=== PATIENT | female | born 1965 | race Caucasian/White ===

== ENCOUNTER 2022-11-18 15:42 | Inpatient (IN) | payer OTHER ==
[~2022-11-18] VITALS: Ht 152.4 cm; Wt 75.9 kg
--- NOTE | 2022-11-18 16:30 | NUR ---
[id number] HOME C/O DIZZINESS X 4 DAYS W NOTED HYPERTENSION. PLACED ON BED, AAOX4, BREATHING EVEN NON LABORED SATURATING AT 98%, BP- 134/80, FL- 95.
--- NOTE | 2022-11-18 17:30 | NUR ---
CATIA DESIGNER AT BEDSIDE
[2022-11-18 17:49] LABS: BASOPHILS % (AUTO) 0.2 % (0.0-2.0); EOSINOPHILS % (AUTO) 2.6 % (0.0-6.0); HEMATOCRIT 38 % (33-45); HEMOGLOBIN 12.9 g/dL (11.5-14.8); LYMPHOCYTES % (AUTO) 11.7 % (20.0-44.0); MEAN CORPUSCULAR HGB CONC 34 g/dl (31.0-36.0); MEAN CORPUSCULAR VOLUME 93 fL (82-100); MONOCYTES # (AUTO) 0.4 K/uL (0.1-1.30); MONOCYTES % (AUTO) 4.5 % (2.0-12.0); NEUTROPHILS # (AUTO) 7.2 K/uL (1.8-8.9); PLATELET COUNT (AUTO) 130 K/uL (150-450); RED BLOOD CELL COUNT(AUTO) 4.11 MIL/uL (4.0-5.2); WHITE BLOOD COUNT (AUTO) 8.9 K/uL (4.3-11.0)
[2022-11-18 18:31] LABS: ALBUMIN 2.9 g/dL (3.4-5.0); BILIRUBIN,TOTAL 0.4 mg/dL (0.2-1.0); CALCIUM, SERUM 9.1 mg/dL (8.5-10.1); POTASSIUM 3.5 mmol/L (3.5-5.1); TOTAL PROTEIN, SERUM 8.3 g/dL (6.4-8.2)
[2022-11-18] MEDS ORDERED: IV NS 0.9% 1,000 ML IV ONE (19:00)
--- NOTE | 2022-11-18 19:00 | NUR ---
PATIENT TAKEN TO CT VIA [facility]
--- NOTE | 2022-11-18 19:19 | NUR ---
SWAB FOR COVID19 SENT TO LAB
--- NOTE | 2022-11-18 20:34 | NUR ---
IV CANNULA G20 ON RIGHT UPPER ARM.
--- NOTE | 2022-11-18 21:59 | NUR ---
URINE SAMPLE SENT TO LAB
--- NOTE | 2022-11-18 22:13 | NUR ---
REPORT GIVEN TO CANDIE RN ROOM 309-2 FOR ANTHONY
[2022-11-18 22:15] VITALS: BP 136/99
--- NOTE | 2022-11-18 22:15 | NUR ---
RN NOTES LUPE CALLED AT [id number] AND GAVE REPORT FOR THE PATIENT. HE STATED PATIENT WAS A/O TIMES 4 INITIALLY BUT NOW THAT WE WANT TO TRANSFER THE PATIENT SHE IS NOT RESPONSIVE. INFORMED CHARGE NURSE BELLO, SHE MADE SURE ALL TESTS IS DONE AND ALSO INFORMED NURSE PIANO CASE AND BENCH ASSEMBLER, FOR SAFE TRANSFER TO [facility].
[2022-11-18] MEDS ORDERED: Z GUARD REMEDY 4 OZ OINT TP PRN (23:00)
[2022-11-18] MEDS ORDERED: ACETAMINOPHEN 325 MG TABLET PO PRN (23:00)
[2022-11-18] MEDS ORDERED: MAGNESIUM HYDROXIDE 30 ML UDC PO PRN (23:00)
[2022-11-18] MEDS ORDERED: MAG HYDROX/AL HYDROX/SIMETH 30 ML UDC PO PRN (23:00)
[2022-11-18] MEDS ORDERED: ZOLPIDEM TARTRATE 5 MG TABLET PO PRN (23:00)
[2022-11-18] MEDS ORDERED: ONDANSETRON HCL/PF 4 MG/2 ML VIAL IVP PRN (23:00)
--- NOTE | 2022-11-18 23:00 | NUR ---
SIX PACK LOADER OPERATOR OPENING NOTES RECEIVED PATIENT AT 2300 FROM ER. ARASHNI AND ANOTHER NURSE TRANSFER THE PATIENT FROM ER. PATIENT NON RESPONSIVE. NURSE FACING GRINDER PRESENT. FINALLY WE GOT DEEP PAIN STIMULI RESPONSE. BUT PATIENT VERY WEAK AND NON RESPONSIVE TO VERBAL AND LIGHT TOUGH. ON TELE MONITOR READING SR 85. STARTED THE IV HYDRATION. OVERALL SKIN INTACT. ALL SAFETY MEASURES IN PLACE. BED LOCKED IN THE LOWEST POSITION. SIDE RAILS UP TIMES 2. BED ALARM ON. CALL LIGHT AND TABLE IN EASY REACH. WILL CONTINUE TO MONITOR CLOSELY.
[2022-11-18] MEDS: IV 1/2NS 1000 ML 1,000 ML IV PRN (23:26)
[2022-11-19] MEDS ORDERED: DEXTROSE 50%-WATER 50 ML DISP.SYRIN IV PRN (02:00)
[2022-11-19 04:00] VITALS: BP 140/103
[2022-11-19] MEDS: BLOOD SUGAR DIAGNOSTIC 1 EACH STRIP IN SCH ×4 (05:58→22:48)
[2022-11-19] MEDS: INSULIN REGULAR, HUMAN 100 UNIT/ML 3 ML VIAL SQ PRN ×4 (05:58→22:51)
--- NOTE | 2022-11-19 06:51 | NUR ---
PRODUCTION TECHNICIAN CLOSING NOTES RECEIVED PATIENT AWAKE IN BED. A/O TIMES 4. VERBALLY RESPONSIVE. NO PAIN NOTED. NO SOB NOTED. NO DISTRESS NOTED.ON TELE MONITOR READING SR 80. IV ACCESS ON THE RUARM G # 20 INTACT RUNNING 1/2 NS AT 75 ML/HR. OVERALL SKIN INTACT. ALL SAFETY MEASURES IN PLACE. BED LOCKED IN THE LOWEST POSITION. SIDE RAILS UP TIMES 2. BED ALARM ON. CALL LIGHT AND TABLE IN EASY REACH. WILL ENDORSE FOR ANTHONY..
--- NOTE | 2022-11-19 07:25 | NUR ---
SKATING RINK ICE MAKER OPENING NOTES RECEIVED PATIENT AWAKE IN BED. A/O X 4. VERBALLY RESPONSIVE. PT IS ON RA, BREATHING EVEN AND NON LABORED. NO PAIN NOTED. NO S/S OF DISTRESS OR SOB NOTED AT THIS TIME. PT IS ON EXTERNAL NUCLEAR MONITORING TECHNICIAN READING SR 83. IV ACCESS ON THE RIGHT UPPER ARM G #20 INTACT RUNNING 1/2 NS AT 75 ML/HR. ALL SAFETY MEASURES IN PLACE. BED LOCKED IN THE LOWEST POSITION. SIDE RAILS UP TIMES 2. BED ALARM ON. CALL LIGHT AND TABLE IN EASY REACH. WILL CONTINUE TO MONITOR.
[2022-11-19 08:00] VITALS: BP 175/96
[2022-11-19] MEDS: PANTOPRAZOLE 40 MG TABLET.DR PO SCH (09:14)
[2022-11-19] MEDS ORDERED: LOSA1TAB39 PO (09:15)
[2022-11-19] MEDS ORDERED: HUM10VIA3 SQ (09:15)
[2022-11-19] MEDS ORDERED: MECL-159 PO (09:15)
[2022-11-19] MEDS ORDERED: GABA300C PO (09:15)
[2022-11-19 10:03] LABS: BILIRUBIN,URINE NEGATIVE (NEGATIVE); COLOR,URINE DARK YELLOW (YELLOW); LEUKOCYTE ESTERASE ,URINE 2+ (NEGATIVE); NITRITE, URINE NEGATIVE (NEGATIVE); PROTEIN,URINE 3+ mg/dl (NEGATIVE); UGLUCOSE 1+ mg/dL (NEGATIVE); UROBILINOGEN,URINE 0.2 EU/dL (0.2)
[2022-11-19 10:07] LABS: BACTERIA,URINE Many /HPF (None Seen); COARSE GRANULAR CASTS,URINE Few /LPF (None Seen); RBC,URINE 21-50 /HPF (0-2); SQUAMOUS EPITHELIAL CELL,UR Moderate /HPF (None Seen); WBC,URINE 51-80 /HPF (0-3)
[2022-11-19 12:00] VITALS: BP 158/76
[2022-11-19] MEDS: IV 1/2NS 1000 ML 1,000 ML IV PRN (12:26)
[2022-11-19] MEDS: IV NS 0.9% 1,000 ML IV SCH (14:27)
[2022-11-19 16:00] VITALS: BP 97/57
--- NOTE | 2022-11-19 17:30 | NUR ---
RN NOTE PT HOME MEDICATION HAS NOT BEEN RECONCILED. CONTACTED X2. NO RESPONSE.
--- NOTE | 2022-11-19 18:35 | NUR ---
PASTORAL COUNSELOR CLOSING NOTES PATIENT AWAKE IN BED. A/OX4. PT IS ON RA WITH NO S/S SOB NOTED. NO DISTRESS NOTED. NO PAIN NOTED. ON EXTERNAL TELE MONITOR READING ST 107BPM. IV ACCESS ON THE RIGHT UA G#20 INTACT RUNNING NS AT 75 ML/HR. PT REFUSED BLOOD DRAW. ALL SAFETY MEASURES IN PLACE. BED LOCKED IN THE LOWEST POSITION. SIDE RAILS UP TIMES 2. BED ALARM ON. CALL LIGHT AND TABLE IN EASY REACH. WILL ENDORSE TO NEXT SHIFT FOR ANTHONY.
--- NOTE | 2022-11-19 19:20 | NUR ---
PROGRAMMER DEVELOPER OPENING NOTE RECEIVED PATIENT AWAKE IN BED. PT A/O X 4, ABLE TO MAKE NEEDS KNOWN. PT IS ON RA, BREATHING EVEN AND NON LABORED. NO PAIN NOTED. NO S/S OF DISTRESS OR SOB NOTED AT THIS TIME. PT IS ON EXTERNAL HOOP COILING MACHINE OPERATOR READING ST 105. IV ACCESS ON THE RIGHT UPPER ARM G #20 INTACT RUNNING NS AT 75 ML/HR. ALL SAFETY MEASURES IN PLACE. BED LOCKED IN THE LOWEST POSITION. SIDE RAILS UP TIMES 2. BED ALARM ON. CALL LIGHT AND TABLE WITHIN REACH. WILL CONTINUE TO MONITOR.
[2022-11-19 20:00] VITALS: BP 134/83
[2022-11-20] VITALS: BP 148/100
[2022-11-20 04:00] VITALS: BP 140/79
[2022-11-20] MEDS: IV NS 0.9% 1,000 ML IV SCH (04:19)
[2022-11-20] MEDS: BLOOD SUGAR DIAGNOSTIC 1 EACH STRIP IN SCH ×2 (06:48→11:19)
[2022-11-20] MEDS: INSULIN REGULAR, HUMAN 100 UNIT/ML 3 ML VIAL SQ PRN (06:48)
--- NOTE | 2022-11-20 06:50 | NUR ---
PERSONAL SHOPPER CLOSING NOTE LEFT PT SLEEPING IN BED. NO C/O PAIN AT THIS TIME. ALL NEEDS ATTENDED. ALL MEDS GIVEN ON TIMELY MANNER. NO S/S OF RESPIRATORY DISTRESS. ALL SAFETY MEASURES IN PLACE. WILL ENDORSE TO AM SHIFT NURSE FOR ANTHONY.
--- NOTE | 2022-11-20 07:15 | NUR ---
MINISTER HELPER OPENING NOTE RECEIVED PATIENT AWAKE IN BED. PT A/O X 4, ABLE TO MAKE NEEDS KNOWN. PT IS ON RA, BREATHING EVEN AND NON LABORED. NO PAIN NOTED. NO S/S OF DISTRESS OR SOB NOTED AT THIS TIME. PT IS ON EXTERNAL POLE TESTER READING SR 99. IV ACCESS ON THE RIGHT UPPER ARM G #20 INTACT RUNNING NS AT 75 ML/HR. ALL SAFETY MEASURES IN PLACE. BED LOCKED IN THE LOWEST POSITION. SIDE RAILS UP TIMES 2. BED ALARM ON. CALL LIGHT AND TABLE WITHIN REACH. WILL CONTINUE TO MONITOR.
[2022-11-20] MEDS: PANTOPRAZOLE 40 MG TABLET.DR PO SCH (07:34)
[2022-11-20 08:00] VITALS: BP 157/73
[2022-11-20 12:00] VITALS: BP 130/83
--- NOTE | 2022-11-20 13:00 | NUR ---
AMA NOTES PT SEEN BY DR MCDANIELS THIS MORNING WITH ORDER TO DO BLOOD WORK ESPECIALLY BLOOD CREATININE LEVEL. PT IS A/O X4 AND ABLE TO MAKE NEEDS KNOWN. REFUSED ANY BLOOD WORKS DONE AND VERBALIZED THAT SHE WANTED TO GO AGAINST [facility]. EXPLAINED TO PT ABOUT RISKS AND CONSEQUENCES OF LEAVING THE HOSPITAL, BENEFITS OF TREATMENT AT THIS TIME BUT PATIENT STILL INSISTED OF LEAVING AMA. DR MCDANIELS MADE AWARE. AMA FORM SIGNED BY PATIENT AND FILED ON HER CHART. ALL BELONGINGS ACCOUNTED FOR AND PT SIGNED BELONGINGS LIST. IV ACCESS ON THUY G# 20 REMOVED WITH NO ACTIVE BLEEDING NOTED, DRY PRESSURE DRESSING APPLIED AT SITE. NAME ARMBAND REMOVED. PT LEFT UNIT 1230 AMBULATORY, AND SON VIVIAN PICKED-UP PT AT THE LOBBY.
== END 2022-11-20 15:49 | disposition left against medical advice (07) | DRG 469 ==
LOC: ER 15:48 → TELE 21:46
PROVIDERS: ADMIT Student in an Organized Health Care Education/Training Program
DX: N17.0 Acute kidney failure with tubular necrosis (principal); G93.41 Metabolic encephalopathy; I21.A1 Myocardial infarction type 2; E44.0 Moderate protein-calorie malnutrition; E87.1 Hypo-osmolality and hyponatremia; N18.9 Chronic kidney disease, unspecified; Z79.4 Long term (current) use of insulin; Z68.32 Body mass index [BMI] 32.0-32.9, adult; E11.22 Type 2 diabetes mellitus with diabetic chronic kidney disease; I12.9 Hypertensive chronic kidney disease with stage 1 through stage 4 chronic kidney disease, or unspecified chronic kidney disease
CPT/HCPCS: 36415; 70450-TC; 71045-TC; 76770-TC; 80048-TC; 80053-TC; 81001; 82570-TC; 82962-TC; 84300-TC; 84484-TC; 85025-TC; 87081-TC; 87086-TC; 93307-TC; 93880-TC; C9803; G0378; G0480; J1815; J3490; J7030; J7042